=== PATIENT | female | born 1990 | race Caucasian/White ===

== ENCOUNTER 2023-04-02 14:52 | Outpatient (CLI) | payer OTHER, SELFPAY ==
[2023-04-02 23:21] LABS: Chlamydia DNA Amplified* NOT DETECTED (No Detected); GC DNA Amplified* NOT DETECTED (No Detected)
[2023-04-06 09:35] LABS: HSV 1 Subtype by PCR Not Detected; HSV 2 Subtype by PCR Not Detected; Herpes Simplex Subtype Source Not Provided
== END 2023-04-02 14:53 | disposition home or self-care (01) ==
PROVIDERS: Visit Provider Nurse Practitioner Family
DX: J02.9 Acute pharyngitis, unspecified (principal)
CPT/HCPCS: 87491; 87529; 87591